=== PATIENT | male | born 1960 | race Caucasian/White ===

== ENCOUNTER 2018-04-29 07:07 | Day surgery (SDC) ==
[~2018-04-29 07:07] MED LIST: BRIMONIDINE TARTRATE 0.2% OPTH SOL OP PRN; BSS WITH EPINEPHRINE OP ONE; DEX-MOXI-KETOR OPTH INJ 1/0.5/0.4 MG/ML IO ONE; LIDOCAINE 1% 20 ML MDV ID STA; LIDOCAINE 1%/PHENYLEPHRINE 1.5% BSS (SURGERY) INTRAOCULA ONE; ZOFRAN 4 MG/2 ML IVP ONE
[2018-04-29] MEDS: BETADINE OPTH PREP OP PRN ×2 (08:00→08:12)
[2018-04-29] MEDS: TETRACAINE 0.5% UNIT-DOSE OP PRN ×4 (08:00→08:32)
[2018-04-29] MEDS: CYCLOGYL 2% OPTH OP PRN ×3 (08:00→08:10)
[2018-04-29] MEDS ORDERED: ZOFRAN 4 MG/2 ML ONE (08:22)
[2018-04-29] MEDS ORDERED: SUBLIMAZE ONE (08:22)
[2018-04-29] MEDS ORDERED: VERSED ONE (08:22)
[2018-04-29 11:17] VITALS: TEMP 98.8
[2018-05-02 16:55] VITALS: BP 132/67
== END 2018-04-29 09:30 | disposition home or self-care (01) ==
LOC: SURG 07:07
PROVIDERS: ATTEND Ophthalmology
DX: H25.12 Age-related nuclear cataract, left eye (principal)

== ENCOUNTER 2018-05-13 06:37 | Day surgery (SDC) ==
[2018-05-13] MEDS: CYCLOGYL 2% OPTH OP PRN ×3 (07:15→07:25)
[2018-05-13] MEDS: BETADINE OPTH PREP OP PRN ×2 (07:15→08:03)
[2018-05-13] MEDS: TETRACAINE 0.5% UNIT-DOSE OP PRN ×2 (07:15→08:03)
[2018-05-13] MEDS ORDERED: AK-DILATE 10% OPTH SOL OP PRN (07:30)
[2018-05-13] MEDS ORDERED: SUBLIMAZE ONE (08:25)
[2018-05-13] MEDS ORDERED: VERSED ONE (08:25)
[2018-05-13] MEDS ORDERED: ZOFRAN 4 MG/2 ML ONE (08:25)
[2018-05-13 10:43] VITALS: BP 118/81
[2018-05-13 11:11] VITALS: TEMP 97.8
== END 2018-05-13 09:20 | disposition home or self-care (01) ==
LOC: SURG 06:37
PROVIDERS: ATTEND Ophthalmology
DX: H25.12 Age-related nuclear cataract, left eye (principal)